=== PATIENT | female | born 1975 | race African-American/Black ===

== ENCOUNTER 2017-05-13 10:27 | Emergency (ER) | payer OTHER ==
[~2017-05-13] VITALS: Ht 162.6 cm; Wt 69.9 kg
[2017-05-13 11:11] LABS: MCHC 33.6 G/DL (30.0-36.0); MCV 89.4 FL (83-99); MEAN PLAT.VOLUME 10.2 uM^3 (9.5-12.4); PLATELET COUNT 195 K/uL (156-360); RBC DIS.WIDTH-CV 12.8 % (11.8-14.6); RBC DIS.WIDTH-SD 42.1 % (39-53); RED BLOOD COUNT 4.36 M/uL (3.80-5.20); WHITE BLOOD COUNT 5.2 K/uL (4.1-10.2)
[2017-05-13 11:21] LABS: CHLORIDE 106 mEq/L (99-109); POTASSIUM 3.4 mEq/L (3.7-5.4); SODIUM 144 mEq/L (136-147)
[2017-05-13 11:23] LABS: GLUCOSE 87 mg/dL (70-99)
[2017-05-13 11:24] LABS: ANION GAP 9 MEQ/L (2-14)
[2017-05-13 11:27] LABS: GFR ESTIMATE (CALCULATED) > 59 mL/min/
[2017-05-13 11:28] LABS: UREA NITROGEN (BUN) 11 mg/dL (9-23)
[2017-05-13 11:38] LABS: QUANTITATIVE HCG < 4.0 MIU/ML
[2017-05-13] MEDS ORDERED: FAMVIR500 MG PO (11:45)
[2017-05-13 11:53] LABS: ADD MIUA? YES; BILIRUBIN NEGATIVE; BLOOD NEGATIVE; COLOR YELLOW ((YELLOW)); GLUCOSE (STRIP) NEGATIVE; KETONES NEGATIVE; LEUKOCYTES TRACE; NITRITE NEGATIVE; PROTEIN (STRIP) 30
[2017-05-13 12:08] LABS: EPITHELIAL CELLS 1+ /HPF; MUCUS 1+ /LPF
[2017-05-13 12:09] LABS: BACTERIA NONE SEEN /HPF; CRYSTALS PRESENT; RED BLOOD CELLS 0-5 /HPF (0-5); UCUL ADDED? NO
[2017-05-13 12:10] LABS: AMORPHOUS PHOSPHATE CRYSTALS 3+
[2017-05-13] MEDS ORDERED: FLAGYL250 MG PO (13:55)
[2017-05-13] MEDS ORDERED: FIORICET,ESG1 TABLET PO (13:55)
[2017-05-13 14:12] VITALS: BP 144/74
[2017-05-14 12:08] LABS: CHLAMYDIA TRACHOMATIS NEGATIVE; NEISSERIA GONORRHOEAE NEGATIVE
== END 2017-05-13 14:12 | disposition home or self-care (01) ==
LOC: EME 10:27
PROVIDERS: Physician Assistant
DX: R51 Headache (principal); A59.01 Trichomonal vulvovaginitis; R19.7 Diarrhea, unspecified; M54.2 Cervicalgia; R11.0 Nausea; H53.8 Other visual disturbances; N90.7 Vulvar cyst; F17.200 Nicotine dependence, unspecified, uncomplicated
CPT/HCPCS: 70450; 80048; 81003; 84702; 85027; 87077; 87086; 87186; 87210; 87491; 87591; 99281; 99285; J0780; J1885; J7030

== ENCOUNTER 2018-02-06 10:48 | Emergency (ER) | payer OTHER ==
[~2018-02-06] VITALS: Ht 162.6 cm; Wt 70.9 kg
[~2018-02-06 10:48] MED LIST: FAMVIR500 MG PO; FIORICET,ESG1 TABLET PO; FLAGYL250 MG PO
[2018-02-06 11:11] LABS: APPEARANCE SL.HAZY ((CLEAR)); BILIRUBIN NEGATIVE; BLOOD MODERATE; COLOR YELLOW ((YELLOW)); GLUCOSE (STRIP) NEGATIVE; KETONES 5; LEUKOCYTES LARGE; NITRITE POSITIVE; PROTEIN (STRIP) 30; SPECIFIC GRAVITY 1.015 (1.000-1.030)
[2018-02-06 11:17] LABS: BACTERIA 2+ /HPF; EPITHELIAL CELLS 1+ /HPF; MUCUS 1+ /LPF; RED BLOOD CELLS 20-30 /HPF (0-5); UCUL ADDED? YES; WHITE BLOOD CELLS TNTC /HPF (0-5)
[2018-02-06 11:37] LABS: HEMATOCRIT 43.3 % (36.0-46.0); MCH 31.1 PG (29.0-34.0); MCHC 34.6 G/DL (30.0-36.0); MCV 89.6 FL (83-99); PLATELET COUNT 190 K/uL (156-360); RBC DIS.WIDTH-CV 13.2 % (11.8-14.6); RBC DIS.WIDTH-SD 43.3 % (39-53); RED BLOOD COUNT 4.83 M/uL (3.80-5.20); WHITE BLOOD COUNT 7.1 K/uL (4.1-10.2)
[2018-02-06 11:46] LABS: CHLORIDE 105 mEq/L (99-109); POTASSIUM 3.5 mEq/L (3.7-5.4); SODIUM 142 mEq/L (136-147)
[2018-02-06 11:48] LABS: GLUCOSE 97 mg/dL (70-99)
[2018-02-06 11:51] LABS: CREATININE 0.8 mg/dL (0.6-1.3); GFR ESTIMATE (CALCULATED) > 59 mL/min/
[2018-02-06 11:52] LABS: UREA NITROGEN (BUN) 8 mg/dL (9-23)
[2018-02-06 12:00] LABS: QUANTITATIVE HCG < 4.0 MIU/ML
[2018-02-06] MEDS ORDERED: TYLENOL WITH C1 EACH PO (14:23)
[2018-02-06] MEDS ORDERED: CIPRO500 MG PO (14:23)
[2018-02-06 14:43] VITALS: BP 120/84
== END 2018-02-06 14:48 | disposition home or self-care (01) ==
LOC: EME 10:48
DX: N12 Tubulo-interstitial nephritis, not specified as acute or chronic (principal); F17.200 Nicotine dependence, unspecified, uncomplicated
CPT/HCPCS: 74176; 80048; 81003; 84702; 85027; 87077; 87086; 87186; 99281; 99285; J0696; J2270; J7030

== ENCOUNTER 2018-03-08 05:09 | Emergency (ER) | payer OTHER ==
[~2018-03-08] VITALS: Ht 162.6 cm; Wt 68.0 kg
[~2018-03-08 05:09] MED LIST changes: +CIPRO500 MG PO; +TYLENOL WITH C1 EACH PO
[2018-03-08] MEDS ORDERED: DOXYCYCLINE HY100 MG PO (06:25)
[2018-03-08] MEDS ORDERED: INDOCIN50 MG PO (06:25)
[2018-03-08 06:55] VITALS: BP 120/90
== END 2018-03-08 06:56 | disposition home or self-care (01) ==
LOC: EME 05:09
DX: L03.111 Cellulitis of right axilla (principal); F17.200 Nicotine dependence, unspecified, uncomplicated
CPT/HCPCS: 81003; 81025; 99281; 99284

== ENCOUNTER 2018-06-10 20:40 | Emergency (ER) | payer OTHER ==
[~2018-06-10] VITALS: Ht 162.6 cm; Wt 67.5 kg
[~2018-06-10 20:40] MED LIST changes: +DOXYCYCLINE HY100 MG PO; +INDOCIN50 MG PO
[2018-06-10 20:46] VITALS: BP 117/88
[2018-06-10] MEDS ORDERED: NAPROSYN500 MG PO (21:28)
== END 2018-06-10 21:54 | disposition home or self-care (01) ==
LOC: EME 20:40
DX: M65.4 Radial styloid tenosynovitis [de Quervain] (principal); F17.200 Nicotine dependence, unspecified, uncomplicated
CPT/HCPCS: 99281; 99283

== ENCOUNTER 2018-06-14 02:24 | Emergency (ER) | payer OTHER ==
[~2018-06-14] VITALS: Ht 162.6 cm; Wt 66.2 kg
[~2018-06-14 02:24] MED LIST changes: +NAPROSYN500 MG PO
[2018-06-14] MEDS ORDERED: PEN-VEE K,VEET500 MG PO (04:20)
[2018-06-14] MEDS ORDERED: ULTRAM50 MG PO (04:20)
[2018-06-14 05:06] VITALS: BP 125/89
== END 2018-06-14 05:07 | disposition home or self-care (01) ==
LOC: EME 02:24
DX: J01.00 Acute maxillary sinusitis, unspecified (principal); K02.9 Dental caries, unspecified; K04.5 Chronic apical periodontitis; F17.200 Nicotine dependence, unspecified, uncomplicated
CPT/HCPCS: 70490; 99281; 99283

== ENCOUNTER 2018-06-24 | Emergency (ER) | payer OTHER ==
[~2018-06-24] VITALS: Ht 162.6 cm; Wt 64.7 kg
[~2018-06-24] MED LIST changes: +PEN-VEE K,VEET500 MG PO; +ULTRAM50 MG PO
[2018-06-24] MEDS ORDERED: SILVADENE,SSD,T50 GM TP (01:48)
[2018-06-24 02:02] VITALS: BP 124/84
== END 2018-06-24 02:03 | disposition home or self-care (01) ==
LOC: EME
DX: T22.211A Burn of second degree of right forearm, initial encounter (principal); Y93.G9 Activity, other involving cooking and grilling; Y99.0 Civilian activity done for income or pay; F17.200 Nicotine dependence, unspecified, uncomplicated
CPT/HCPCS: 99281; 99284